=== PATIENT | male | born 1980 | race African-American/Black ===

== ENCOUNTER 2016-12-07 20:38 | Inpatient (IN) | payer MEDICAID ==
[~2016-12-07] VITALS: Ht 170.2 cm; Wt 68.0 kg
[2016-12-07] MEDS ORDERED: SODIUM CHLORIDE 0.9% 1,000 ML IV ONE (20:51)
[2016-12-07] MEDS ORDERED: LORAZEPAM 2MG/ML CPJ IV ONE (21:00)
[2016-12-07 21:20] LABS: HEMATOCRIT. 39.6 % (42.0-52.0); HEMOGLOBIN. 13.8 g/dL (14.0-18.0); MEAN CORPUSCULAR HEMOGLOBIN 30.1 pg (28.0-32.0); MEAN CORPUSCULAR VOLUME 86.8 fL (80.0-94.0); MEAN PLATELET VOLUME 7.4 fl (7.4-10.4); PLATELET 174 x1000/uL (130-400); RED BLOOD CELL COUNT 4.57 mill/uL (4.7-6.1); RED CELL DISTRIBUTION WIDTH 12.3 % (11.6-14.6)
[2016-12-07 21:21] LABS: CHLORIDE 104 mEq/L (98-107)
[2016-12-07] MEDS ORDERED: LORAZEPAM 2MG/ML CPJ IM ONE (21:30)
[2016-12-07] MEDS ORDERED: OLANZAPINE 10 MG/VIAL IM ONE (21:30)
[2016-12-07 21:31] LABS: CARBON DIOXIDE 24 mEq/L (21-32); ETHANOL BLOOD 12 mg/dL
[2016-12-07 21:44] LABS: PLATELET ESTIMATE NORMAL
[2016-12-07] MEDS ORDERED: DEXTROSE 50% WATER 50ML SYRINGE IV ONE (21:45)
[2016-12-07] MEDS ORDERED: ASPIRIN 81MG TABLET PO ONE (21:45)
[2016-12-07] MEDS ORDERED: ENOXAPARIN 80MG/0.8ML SYR SUBCUT ONE (22:00)
[2016-12-07 22:04] LABS: INR 1.1; PARTIAL THROMBOPLASTIN TIME 23.3 sec (23.4-31.0); PROTHROMBIN TIME 11.4 sec (9.4-11.6)
[2016-12-07 22:33] LABS: *AMPHETAMINES SCREEN URINE PRESUMTIVE POSITIVE (NEGATIVE); *BARBITURATES SCREEN URINE NEGATIVE (NEGATIVE); *BENZODIAZEPINES SCREEN URINE NEGATIVE (NEGATIVE); *COCAINE SCREEN URINE NEGATIVE (NEGATIVE); CANNABINOID URINE SCREEN PRESUMTIVE POSITIVE (NEGATIVE); METHADONE URINE SCREEN NEGATIVE (NEGATIVE); OPIATES URINE SCREEN NEGATIVE (NEGATIVE); PHENCYCLIDINE URINE SCREEN NEGATIVE (NEGATIVE)
[2016-12-07 23:50] VITALS: BP 103/64
[2016-12-08] VITALS (17 sets, daily range): BP systolic 93–133; BP diastolic 44–74
== END 2016-12-08 08:05 | disposition left against medical advice (07) | DRG 424 ==
LOC: ER 21:09 → ENRESERV 22:02 → CVICU 23:46
PROVIDERS: ADMIT Hospitalist; ATTEND Hospitalist
DX: E16.2 Hypoglycemia, unspecified (principal); F17.200 Nicotine dependence, unspecified, uncomplicated; Z53.21 Procedure and treatment not carried out due to patient leaving prior to being seen by health care provider
CPT/HCPCS: 36415; 71010; 80048; 80305; 80307; 80329; 82962; 83880; 84443; 84484; 85025; 85610; 85730; 93005; 96361; 96372; 96374; 96375; 99291; G0482; J1650; J2060; J3490; J7030; A4315